=== PATIENT | female | born 1980 | race African-American/Black ===

== ENCOUNTER 2017-07-02 14:12 | Emergency (ER) | payer MEDICAID ==
[~2017-07-02] VITALS: Ht 165.1 cm; Wt 68.0 kg
[~2017-07-02 14:12] MED LIST: AZITHROMYCIN250 MG ORAL; BIRTH CONTROL; CYCLOBENZAPRINE10 MG ORAL; IBUPROFEN600 MG ORAL; KEFLEX500 MG ORAL; NKM; ZOFRAN ODT4 MG ORAL; [UNRECOGNIZED DRUG - REMARK]
--- NOTE | 2017-07-02 14:52 | Emergency Room Report ---
History of Present Illness General Chief Complaint: Pain Source: Patient Present Illness HPI 36-year-old female presents to the emergency department complaining of 10 out of 10 in severity left-sided neck pain that radiates down into the posterior shoulder since Thursday. Patient denies trauma or fall. Patient states that he onset after waking up. exacerbated with turning her head from side to side. Patient states muscles feel tight in nature she has not taken any medication for her symptoms. She denies fevers or chills. Denies past medical history. Denies numbness tingling or loss of sensation or gross motor movements of the extremities, incontinence of bowel or bladder. Denies CP, Palpitations, LOC, AMS , dizziness, Changes in Vision, Sensation, paresthesias, or a sudden severe headache. Allergies: Coded Allergies: PINEAPPLE (Verified Allergy, Intermediate, 06/11/16) PENICILLINS (Verified Allergy, Mild, Itching, 07/08/14) Patient History Past Medical History: see triage record Past Surgical History: none Pertinent Family History: none Last Menstrual Period: 06/18/17 Now: No Immunizations: UTD Reviewed Nursing Documentation: PMH: Agreed, PSxH: Agreed Nursing Documentation-PMH Past Medical History: No History, Except For Review of Systems All Other Systems: negative except mentioned in HPI Physical Exam Vital Signs Date Time Temp Pulse Resp B/P (MAP) Pulse Ox O2 Delivery O2 Flow Rate FiO2 07/02/17 14:24 97.9 83 14 113/75 99 Room Air Sp02 EP Interpretation: reviewed, normal General Appearance: no apparent distress, alert, GCS 15, non-toxic Head: normocephalic, atraumatic Eyes: bilateral eye normal inspection, bilateral eye PERRL ENT: hearing grossly normal, normal pharynx, no angioedema, normal voice Neck: full range of motion, no bony tend, supple/symm/no masses, tender lateral - left lateral ttp, no midline ttp, no obvious deformity Respiratory: lungs clear, normal breath sounds, speaking full sentences Cardiovascular #1: regular rate, rhythm, no edema Cardiovascular #2: 2+ radial (R), 2+ radial (L) Musculoskeletal: back normal, gait/station normal, normal range of motion, tender - left upper thoracic and rhomboid ttp, no midline ttp, no obvious deformity, Left trapezius muscle is tight and swollen in comparison to the right trapezius Neurologic: alert, oriented x3, responsive, motor strength/tone normal, sensory intact, speech normal Psychiatric: judgement/insight normal, memory normal, mood/affect normal Skin: normal color, no rash, warm/dry, well hydrated Lymphatic: no adenopathy Medical Decision Making PA Attestation Dr. Ro is my supervising Physician whom patient management has been discussed with. Diagnostic Impression: Primary Impression: Neck pain on left side Additional Impression: Muscle spasm ER Course 36-year-old female presents to the emergency department complaining of 10 out of 10 in severity left-sided neck pain that radiates down into the posterior shoulder since Thursday. Patient denies trauma or fall. Patient states that he onset after waking up. exacerbated with turning her head from side to side. Patient states muscles feel tight in nature she has not taken any medication for her symptoms. She denies fevers or chills. Denies past medical history. Denies numbness tingling or loss of sensation or gross motor movements of the extremities, incontinence of bowel or bladder. Denies CP, Palpitations, LOC, AMS , dizziness, Changes in Vision, Sensation, paresthesias, or a sudden severe headache. Ddx considered but are not limited to Fracture, dislocation, contusion, epidural abscess, Meningitis, Sprain/Strain/Spasm just to name a few Vital signs: are WNL, pt. is afebrile H&PE are most consistent with muscle spasm ORDERS: none required at this time. ED INTERVENTIONS: -Soma PO -Toradol IM I do not suspect an emergent condition at this time. with current presentation pt. is stable for close outpatient follow up. D/w pt. to return to ED with worsening or new symptoms. DISCHARGE: At this time pt. is stable for d/c to home. Will provide printed patient care instructions, and any necessary prescriptions. Care plan and follow up instructions have been discussed with the patient prior to discharge. Last Vital Signs Date Time Temp Pulse Resp B/P (MAP) Pulse Ox O2 Delivery O2 Flow Rate FiO2 07/02/17 14:24 97.9 83 14 113/75 99 Room Air Disposition: HOME, SELF-CARE Condition: Stable Scripts Cyclobenzaprine Hcl* (FLEXERIL*) 10 Mg Tablet 10 MG ORAL THREE TIMES A DAY for 7 Days, #21 TAB Prov: Arabella Sandoval 07/02/17 Ibuprofen* (MOTRIN*) 600 Mg Tablet 600 MG ORAL THREE TIMES A DAY, #30 TAB 0 Refills Prov: Arabella Sandoval 07/02/17 Patient Instructions: Muscle Cramps and Spasms, [id number] Additional Instructions: Take medications as directed. Follow up with a Primary Care Provider in 3-5 days, even if your symptoms have resolved. --Please review list of primary care clinics, if you do not already have a primary care provider Return sooner to ED if new symptoms occur, or current symptoms become worse. Do not drink alcohol, drive, or operate heavy machinery while taking Flexeril as this may cause drowsiness. - Please note that this Emergency Department Report was dictated using [employer] engineer technology software, occasionally this can lead to erroneous entry secondary to interpretation by the dictation equipment. Arabella Sandoval Jul 02, 2017 14:52
[2017-07-02] MEDS ORDERED: CYCLOBENZAPRINE10 MG ORAL (14:54)
[2017-07-02] MEDS ORDERED: IBUPROFEN600 MG ORAL (14:54)
[2017-07-02] MEDS ORDERED: Ketorolac 60mg Inj IM ONE (15:00)
[2017-07-02 15:15] VITALS: BP 130/84
== END 2017-07-02 15:15 | disposition home or self-care (01) ==
LOC: EMR 14:53
DX: M54.2 Cervicalgia (principal); M62.838 Other muscle spasm; Z88.0 Allergy status to penicillin; Z91.018 Allergy to other foods
CPT/HCPCS: 96372; 99284; 99285

== ENCOUNTER 2017-10-17 03:13 | Emergency (ER) | payer MEDICAID ==
[~2017-10-17] VITALS: Ht 165.1 cm; Wt 65.8 kg
[2017-10-17 03:33] VITALS: BP 129/77
[2017-10-17] MEDS ORDERED: CYCLOBENZAPRINE10 MG ORAL (03:48)
[2017-10-17] MEDS ORDERED: IBUPROFEN600 MG ORAL (03:48)
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
[2017-10-17 04:00] VITALS: BP 129/77
== END 2017-10-17 04:00 | disposition home or self-care (01) ==
LOC: EMR 03:43
DX: S16.1XXA Strain of muscle, fascia and tendon at neck level, initial encounter (principal); S76.912A Strain of unspecified muscles, fascia and tendons at thigh level, left thigh, initial encounter; S76.012A Strain of muscle, fascia and tendon of left hip, initial encounter; V43.52XA Car driver injured in collision with other type car in traffic accident, initial encounter; Y92.410 Unspecified street and highway as the place of occurrence of the external cause; Z88.0 Allergy status to penicillin; Z91.018 Allergy to other foods
CPT/HCPCS: 99283

== ENCOUNTER 2018-03-01 09:39 | Emergency (ER) | payer MEDICAID ==
[~2018-03-01] VITALS: Ht 165.1 cm; Wt 67.6 kg
--- NOTE | 2018-03-01 10:42 | Emergency Room Report ---
History of Present Illness General Chief Complaint: Vaginal Source: Patient Present Illness HPI 37yo f Presents with possible lump on left labia majora She thinks she may have popped it with tweezers but not sure and wants a second opinion She has no new change in sex partners and no abnormal discharge or other symptoms Allergies: Coded Allergies: PINEAPPLE (Verified Allergy, Intermediate, 06/11/16) PENICILLINS (Verified Allergy, Mild, Itching, 07/08/14) Patient History Past Medical History: see triage record Last Menstrual Period: last week Now: No Reviewed Nursing Documentation: PMH: Agreed; PSxH: Agreed Nursing Documentation-PMH Past Medical History: No History, Except For Review of Systems All Other Systems: negative except mentioned in HPI Physical Exam Vital Signs Date Time Temp Pulse Resp B/P (MAP) Pulse Ox O2 Delivery O2 Flow Rate FiO2 03/01/18 09:42 98.3 94 16 121/78 98 Room Air 98.2 Sp02 EP Interpretation: reviewed, normal General Appearance: no apparent distress, alert, non-toxic Head: normocephalic Eyes: bilateral eye normal inspection, bilateral eye PERRL, bilateral eye EOMI ENT: normal ENT inspection, hearing grossly normal, normal pharynx, no angioedema, normal voice, moist mucus membranes Neck: normal inspection, supple/symm/no masses Respiratory: chest symmetrical Gastrointestinal: normal inspection, non tender, soft, no mass, no guarding, no rebound Rectal: deferred Genitourinary: normal inspection, no CVA tenderness, ext genitalia/vag normal - possible L labia majora folliculitis, no lump or mass palpated, nontender but recent waxing per patient Musculoskeletal: back normal, gait/station normal, normal range of motion, non- tender, no calf tenderness Neurologic: alert, responsive, mangle feeder III-XII nml as tested, motor strength/tone normal, sensory intact, speech normal Psychiatric: judgement/insight normal, memory normal, mood/affect normal, no suicidal/homicidal ideation Skin: normal color, no rash, warm/dry, normal turgor Lymphatic: no adenopathy Medical Decision Making Diagnostic Impression: Primary Impression: Folliculitis ER Course normal exam except tiny scar from possible recent folliculitis, will dc with precautions to avoid hair grooming in the short term and use exfoliants and preventive measures Last Vital Signs Date Time Temp Pulse Resp B/P (MAP) Pulse Ox O2 Delivery O2 Flow Rate FiO2 03/01/18 09:42 98.3 94 16 121/78 98 Room Air 98.2 Disposition: HOME, SELF-CARE Condition: Stable Patient Instructions: TAD Walter M.D March 01, 2018 10:42
[2018-03-01 11:00] VITALS: BP 121/78
== END 2018-03-01 11:00 | disposition home or self-care (01) ==
LOC: EMR 10:04
DX: L73.9 Follicular disorder, unspecified (principal); Z88.0 Allergy status to penicillin; Z91.018 Allergy to other foods
CPT/HCPCS: 99282

== ENCOUNTER 2018-11-25 12:30 | Emergency (ER) | payer SELFPAY ==
[~2018-11-25] VITALS: Ht 165.1 cm; Wt 66.2 kg
[2018-11-25 12:49] VITALS: BP 126/79
--- NOTE | 2018-11-25 12:51 | NUR ---
ED Nurse Note:pt. came with left lower abd pain no nausea, urine sent to labs
--- NOTE | 2018-11-25 13:00 | Emergency Room Report ---
History of Present Illness General Chief Complaint: Abdominal Pain Source: Medical Record Present Illness HPI Pt. presents to the ED c/o of Left-sided adnexal pain, 8/10 in severity acute onset and constant in nature x 4 days. Some mild relief with pain medications but symptoms do return. denies N/V/F/C, constipation or diarrhea. No ill contacts with similar sx's, no recent travel. no suspicion of , just ended her period. Reports this cycle was heavier and more painful than normal cycles. reports hx of ovarian cyst in the past. denies vaginal d/c, hematuria, dysuria or urinary frequency. No significant PmHx otherwise. Allergies: Coded Allergies: PINEAPPLE (Verified Allergy, Intermediate, 06/11/16) PENICILLINS (Verified Allergy, Mild, Itching, 07/08/14) Patient History Past Medical History: see triage record Past Surgical History: none Pertinent Family History: none Last Menstrual Period: 11/21/18 Now: No : 1 Para: 1 Reviewed Nursing Documentation: PMH: Agreed; PSxH: Agreed Nursing Documentation-PMH Past Medical History: No History, Except For Review of Systems All Other Systems: negative except mentioned in HPI Physical Exam Vital Signs Date Time Temp Pulse Resp B/P (MAP) Pulse Ox O2 Delivery O2 Flow Rate FiO2 11/25/18 12:36 98.4 95 18 126/79 97 Room Air Sp02 EP Interpretation: reviewed, normal General Appearance: no apparent distress, alert, GCS 15, non-toxic Head: normocephalic, atraumatic Eyes: bilateral eye normal inspection, bilateral eye PERRL ENT: hearing grossly normal, normal voice Neck: full range of motion Respiratory: chest non-tender, lungs clear, normal breath sounds, speaking full sentences Cardiovascular #1: regular rate, rhythm Gastrointestinal: normal bowel sounds, non tender, soft, non-distended, no hernia, other - TTP in the left adnexa, no ttp in RUQ, RLQ, or LUQ. Rectal: deferred Genitourinary: normal inspection, no CVA tenderness, other - left adnexal pain / ttp Musculoskeletal: back normal, gait/station normal, normal range of motion, non- tender Neurologic: alert, oriented x3, responsive, motor strength/tone normal, sensory intact, speech normal, grossly normal Psychiatric: judgement/insight normal Skin: normal color, no rash, warm/dry, well hydrated Lymphatic: no adenopathy Medical Decision Making PA Attestation Dr. Deshpande is my supervising physician whom pt. management has been discussed with. Diagnostic Impression: Primary Impression: Ovarian cyst Qualified Codes: N83.202 - Unspecified ovarian cyst, left side Additional Impression: Uterine adnexal pain ER Course Pt. presents to the ED c/o of Left-sided adnexal pain, 7/10 in severity acute onset and constant in nature. some mild relief with pain medications but symptoms do return. denies N/V/F/C, constipation or diarrhea. No ill contacts with similar sx's, no recent travel. no suspicion of , just ended her period. reports this cycle was heavier and more painful than normal cycles. reports hx of ovarian cyst in the past. denies vaginal d/c, hematuria, dysuria or urinary frequency. No significant PmHx otherwise. Ddx considered but are not limited to Diverticulitis, acute appy, ovarian torsion, ectopic , PID tubo-ovarian abscess, ovarian cyst. Vital signs: are WNL, pt. is afebrile H&PE are most consistent with possible ovarian cyst, however due to presentation will r/o torsion, ectopic, and stone. ORDERS: -CBC, CMP, LIPASE: -UA: Unremarkable -URINE HCG: negative -Pelvic US Complete: bilateral ovarian cysts and in the endometrium ED INTERVENTIONS: - 60mg IM Toradol - 5mg [place] d/w pt. conservative treatment, and to follow up with a primary care provider. pt given a list of primary care clinics for follow up. d/w pt. to return to the ED with worsening or new symptoms. DISCHARGE: At this time pt. is stable for d/c to home. Will provide printed patient care instructions, and any necessary prescriptions. Care plan and follow up instructions have been discussed with the patient prior to discharge. Labs Test 11/25/18 13:00 11/25/18 13:20 Urine Color Pale yellow Urine Appearance Clear Urine pH 5 (4.5-8.0) Urine Specific [place] 1.020 (1.005-1.035) Urine Protein Negative (NEGATIVE) Urine Glucose (UA) Negative (NEGATIVE) Urine Ketones Negative (NEGATIVE) Urine Blood Negative (NEGATIVE) Urine Nitrite Negative (NEGATIVE) Urine Bilirubin Negative (NEGATIVE) Urine Urobilinogen Normal MG/DL (0.0-1.0) Urine Leukocyte Esterase 1+ (NEGATIVE) Urine RBC 0-2 /HPF (0 - 2) Urine WBC 0-2 /HPF (0 - 2) Urine Squamous Epithelial Cells Few /LPF (NONE/OCC) Urine Bacteria Few /HPF (NONE) Urine Mucus Moderate /LPF (NONE/OCC) Urine HCG, Qualitative Negative (NEGATIVE) White Blood Count 8.6 K/UL (4.8-10.8) Red Blood Count 4.11 M/UL (4.20-5.40) Hemoglobin 11.6 G/DL (12.0-16.0) Hematocrit 35.8 % (37.0-47.0) Mean Corpuscular Volume 87 FL (80-99) Mean Corpuscular Hemoglobin 28.2 PG (27.0-31.0) Mean Corpuscular Hemoglobin Concent 32.4 G/DL (32.0-36.0) Red Cell Distribution Width 12.2 % (11.6-14.8) Platelet Count 240 K/UL (150-450) Mean Platelet Volume 9.0 FL (6.5-10.1) Neutrophils (%) (Auto) 57.4 % (45.0-75.0) Lymphocytes (%) (Auto) 34.2 % (20.0-45.0) Monocytes (%) (Auto) 5.0 % (1.0-10.0) Eosinophils (%) (Auto) 2.1 % (0.0-3.0) Basophils (%) (Auto) 1.4 % (0.0-2.0) Sodium Level 142 MMOL/L (136-145) Potassium Level 3.7 MMOL/L (3.5-5.1) Chloride Level 107 MMOL/L (98-107) Carbon Dioxide Level 29 MMOL/L (21-32) Anion Gap 6 mmol/L (5-15) Blood Urea Nitrogen 7 mg/dL (7-18) Creatinine 0.8 MG/DL (0.55-1.30) Estimat Glomerular Filtration Rate > 60 mL/min (>60) Glucose Level 85 MG/DL (74-106) Calcium Level 8.3 MG/DL (8.5-10.1) Total Bilirubin 0.4 MG/DL (0.2-1.0) Aspartate Amino Transf (AST/SGOT) 17 U/L (15-37) Alanine Aminotransferase (ALT/SGPT) 22 U/L (12-78) Alkaline Phosphatase 81 U/L (46-116) Total Protein 6.8 G/DL (6.4-8.2) Albumin 3.4 G/DL (3.4-5.0) Globulin 3.4 g/dL Albumin/Globulin Ratio 1.0 (1.0-2.7) Lipase 66 U/L (73-393) CT/MRI/US Diagnostic Results CT/MRI/US Diagnostic Results : Imaging Test Ordered: US Pelvic Impression bilateral ovarian cysts, thickened endometrium.-- Per official radiology report - Please see report for specific details. Last Vital Signs Date Time Temp Pulse Resp B/P (MAP) Pulse Ox O2 Delivery O2 Flow Rate FiO2 11/25/18 12:49 95 18 Room Air 11/25/18 12:49 98.4 126/79 97 Disposition: HOME, SELF-CARE Condition: Stable Scripts Tramadol Hcl* (ULTRAM*) 50 Mg Tablet 50 MG ORAL Q6H PRN for For Pain, #10 TAB 0 Refills Prov: Arabella Sandoval 11/25/18 Naproxen* (NAPROXEN*) 500 Mg Tablet.dr 500 MG ORAL TWICE A DAY for 7 Days, #14 TAB Prov: Arabella Sandoval 11/25/18 Referrals: [facility],REFERRING (PCP) Patient Instructions: Ovarian Cyst, [id number] Additional Instructions: Take medications as directed. Follow up with a CORE [facility]ER within 3 days, even if your symptoms have resolved. * * Return sooner to ED if new symptoms occur, or current symptoms become worse. - Please note that this Emergency Department Report was dictated using [employer] trouble shooter technology software, occasionally this can lead to erroneous entry secondary to interpretation by the dictation equipment. Arabella Sandoval Nov 25, 2018 13:00
[2018-11-25 13:06] LABS: APPEARANCE,URINE CLEAR; BILIRUBIN, URINE NEGATIVE (NEGATIVE); COLOR,URINE PALE YELLOW; GLUCOSE, URINE (UA) NEGATIVE (NEGATIVE); KETONES,URINE NEGATIVE (NEGATIVE); LEUKOCYTE ESTERASE ,URINE 1+ (NEGATIVE); NITRITE,URINE NEGATIVE (NEGATIVE); PH,URINE 5 (4.5-8.0); PROTEIN,URINE NEGATIVE (NEGATIVE); UROBILINOGEN,URINE NORMAL MG/DL (0.0-1.0)
--- NOTE | 2018-11-25 13:34 | NUR ---
ED Nurse Note:blood was sent to labs and IV fluids given, pt. went to [facility]
[2018-11-25 13:40] LABS: BASOPHILS % (AUTO) 1.4 % (0.0-2.0); EOSINOPHILS % (AUTO) 2.1 % (0.0-3.0); HEMATOCRIT 35.8 % (37.0-47.0); HEMOGLOBIN 11.6 G/DL (12.0-16.0); LYMPHOCYTES % (AUTO) 34.2 % (20.0-45.0); MEAN CORPUSCULAR VOLUME 87 FL (80-99); NEUTROPHILS % (AUTO) 57.4 % (45.0-75.0); PLATELET COUNT 240 K/UL (150-450); RED BLOOD COUNT 4.11 M/UL (4.20-5.40); RED CELL DISTRIBUTION WIDTH 12.2 % (11.6-14.8); WHITE BLOOD COUNT 8.6 K/UL (4.8-10.8)
[2018-11-25 13:52] LABS: ANION GAP 6 mmol/L (5-15); BLOOD UREA NITROGEN 7 mg/dL (7-18); CALCIUM 8.3 MG/DL (8.5-10.1); CARBON DIOXIDE 29 MMOL/L (21-32); CHLORIDE 107 MMOL/L (98-107); CREATININE 0.8 MG/DL (0.55-1.30); POTASSIUM 3.7 MMOL/L (3.5-5.1); SODIUM 142 MMOL/L (136-145)
[2018-11-25 13:56] LABS: ALANINE AMINOTRANSFERASE 22 U/L (12-78); ALBUMIN 3.4 G/DL (3.4-5.0); ALKALINE PHOSPHATASE 81 U/L (46-116); ASPARTATE AMINO TRANSFERASE 17 U/L (15-37); BILIRUBIN,TOTAL 0.4 MG/DL (0.2-1.0)
[2018-11-25] MEDS ORDERED: Tylenol #3 tab (300mg/30mg) ORAL ONE (15:30)
--- NOTE | 2018-11-25 15:31 | Diagnostic Imaging Report ---
Indication: Left-sided pelvic pain for 10 days, negative test, cramping Technique: Transabdominal and transvaginal images. Doppler interrogation of the bilateral adnexa Comparison: none Findings: Uterus measures 7.9 cm length by 4.7 cm AP. The endometrium measures 10 mm thick. It demonstrates small cystic areas within the functional layer. Cysts do not appear to extend into the myometrium.. There is a cervical nabothian cyst measuring 8 mm. The myometrium is somewhat heterogeneous in echogenicity without discrete abnormality. The right ovary measures 8.2 cm in length. It demonstrates a 5.1 cm cyst with homogeneous low-level internal echoes. And demonstrates normal peripheral blood flow as well as a 2.1 cm follicle Left ovary measures 5 cm in length. It demonstrates a 3.6 cm unilocular cyst with homogeneous low level internal echoes. It demonstrates normal blood flow No free cul-de-sac fluid Impression: Bilateral ovarian cysts, as described with low level internal echoes. These could represent hemorrhagic functional cyst or ovarian endometriomas 10 mm thick endometrium. Presence of cysts within the endometrial layers raises possibility of endometrial hyperplasia Incidental finding cervical nabothian cyst
[2018-11-25] MEDS ORDERED: TRAMADOL HCL50 MG ORAL (15:42)
[2018-11-25] MEDS ORDERED: NAPROXEN500 M1 ORAL (15:42)
[2018-11-25] MEDS ORDERED: Ketorolac 30mg Inj IV ONE (15:45)
[2018-11-25 15:47] VITALS: BP 122/80
[2018-11-25 16:20] VITALS: BP 122/80
--- NOTE | 2018-11-25 16:22 | NUR ---
ED Nurse Note: Patient is being discharged cleared by ER provider. discharge instruction with prescription given to the patient, patient verbalized understanding. patient a/o x4, ambulated out of Ed with steady gait, with all belongings. ID band removed.
== END 2018-11-25 16:00 | disposition home or self-care (01) ==
LOC: EMR 12:54
DX: N83.202 Unspecified ovarian cyst, left side (principal); N83.201 Unspecified ovarian cyst, right side; Z88.0 Allergy status to penicillin; Z91.018 Allergy to other foods; R10.2 Pelvic and perineal pain
CPT/HCPCS: 36415; 76830; 76856; 80053; 81003; 81025; 83690; 85025; 96361; 96374; 99284; J1885